=== PATIENT | male | born 1970 | race Hispanic/Latino ===

== ENCOUNTER → 2019-12-02 | Outpatient (CLI) | payer SELFPAY ==
--- NOTE | 2019-12-03 14:22 | RAD ---
EXAM DESCRIPTION: Radiographs of the right Shoulder:XR/CR/DR CLINICAL HISTORY: pain in unspecified shoulder COMPARISON: None TECHNIQUE: 2 views. Internal and External rotation. FINDINGS: No fracture right shoulder. Normal bone density. AC joint mild downsloping lateral acromion with normal joint space. Glenohumeral joint unremarkable. No abnormal radiodense objects in the soft tissues or joint spaces. IMPRESSION: No fracture or dislocation. Normal bone density. Mild downsloping lateral acromion may be narrowing supraspinatus tendon outlet. Correlate for rotator cuff syndrome. Electronically signed by: Richy Goodson MD 12/03/2019 2:20 PM CDT
== END ==
LOC: RAD 15:23
PROVIDERS: ATTEND Nurse Practitioner Family
DX: M25.811 Other specified joint disorders, right shoulder (principal)

== ENCOUNTER → 2020-01-13 | Outpatient (CLI) | payer SELFPAY ==
--- NOTE | 2020-01-13 14:05 | MRI ---
Study: MRI of the Right Shoulder. Indication: pain in right shoulder Technique: Multiplanar, multi sequence MRI of the right shoulder was obtained without intravenous contrast. Comparison: Radiographs December 02, 2019 Findings: Moderate hypertrophic AC joint osteoarthritis with a small joint effusion. Type I acromion with moderate lateral downsloping. Moderate volume subacromial/subdeltoid bursal fluid. Full-thickness, fullwidth supraspinatus tendon tearing with high-grade articular tearing anterior margin infraspinatus tendon insertion. In its entirety the tear defect measures up to 33 mm AP by 20 mm transverse. The torn anterior fibers retracted to the level of the medial margin of the acromion. Subscapularis tendinosis. Intracapsular long head biceps tendinosis. Rotator cuff musculature normal without atrophy, fatty infiltration, or intramuscular edema. Circumferential labral truncation/degeneration, most pronounced superiorly where there is high-grade tearing and attenuation. Minimal glenohumeral joint osteoarthritis and tiny joint effusion. No acute fracture. Impression: Full-thickness, fullwidth supraspinatus tendon tear with high-grade articular tearing anterior margin infraspinatus tendon. Subscapularis tendinosis. Intracapsular long head biceps tendinosis. Circumferential labral truncation and degeneration. Minimal glenohumeral joint osteoarthritis and tiny joint effusion. Moderate hypertrophic AC joint osteoarthritis. Electronically signed by: Dread Vigil MD 01/13/2020 2:03 PM [facility]
== END ==
LOC: MRI 08:38
PROVIDERS: ATTEND Orthopaedic Surgery
DX: M75.101 Unspecified rotator cuff tear or rupture of right shoulder, not specified as traumatic (principal); M77.9 Enthesopathy, unspecified; M75.21 Bicipital tendinitis, right shoulder; S43.431A Superior glenoid labrum lesion of right shoulder, initial encounter; M19.011 Primary osteoarthritis, right shoulder; M25.411 Effusion, right shoulder